=== PATIENT | male | born 1975 | race Caucasian/White ===

== ENCOUNTER → 2016-08-07 | Outpatient (CLI) | payer MEDICAID ==
[~2016-08-07] MED LIST: ALPR1TAB2 PO; BUPR1FIL3 SL; DIAZ10TA PO; ONDA4TAB7 PO; OXYC30TA PO
== END | disposition home or self-care (01) ==
LOC: PETCFH 12:32
PROVIDERS: ATTEND Specialist
DX: C43.9 Malignant melanoma of skin, unspecified (principal); R91.1 Solitary pulmonary nodule
CPT/HCPCS: 78816; A9552

== ENCOUNTER 2016-10-18 18:30 | Emergency (ER) | payer MEDICAID ==
[~2016-10-18] VITALS: Ht 177.8 cm; Wt 82.5 kg
[2016-10-18] MEDS ORDERED: HYDROmorphone 1 MG/ML, 1ML ONE (18:57)
[2016-10-18] MEDS ORDERED: HYDROmorphone 1 MG/ML, 1ML IM PRN (19:00)
[2016-10-18] MEDS ORDERED: HYDROmorphone 1 MG/ML, 1ML IM ONE (19:30)
[2016-10-18] MEDS ORDERED: OXYcodone/APAP 5/325MG TABLET ONE (19:47)
[2016-10-18 19:53] VITALS: BP 111/75
[2016-10-18] MEDS ORDERED: OXYcodone/APAP 5/325MG TABLET PO ONE (20:00)
== END 2016-10-18 20:13 | disposition home or self-care (01) ==
LOC: ED 19:44
DX: S83.511A Sprain of anterior cruciate ligament of right knee, initial encounter (principal); S83.521A Sprain of posterior cruciate ligament of right knee, initial encounter; Z85.9 Personal history of malignant neoplasm, unspecified; Z91.041 Radiographic dye allergy status; X50.1XXA Overexertion from prolonged static or awkward postures, initial encounter; Y93.01 Activity, walking, marching and hiking; Y92.89 Other specified places as the place of occurrence of the external cause; Y99.8 Other external cause status
CPT/HCPCS: 29505; 73564; 73590; 73610; 96372; 99284; J1170

== ENCOUNTER → 2016-11-03 | Outpatient (CLI) | payer MEDICAID | END | disposition home or self-care (01) | LOC: CFH 15:37 | PROVIDERS: ATTEND Physician Assistant | DX: M94.261 Chondromalacia, right knee (principal); R60.9 Edema, unspecified ==

== ENCOUNTER → 2016-11-11 | Outpatient (CLI) | payer MEDICAID | END | disposition home or self-care (01) | LOC: PETCFH 09:11 | PROVIDERS: ATTEND Specialist | DX: R91.1 Solitary pulmonary nodule (principal); C43.9 Malignant melanoma of skin, unspecified | CPT/HCPCS: 78816; A9552 ==

== ENCOUNTER 2016-11-26 06:06 | Day surgery (SDC) | payer MEDICAID ==
[~2016-11-26] VITALS: Ht 177.8 cm; Wt 83.7 kg
[2016-11-26] MEDS ORDERED: SODIUM CHLORIDE 0.9% 1,000 ML IV SCH ×2 (07:03→07:30)
[2016-11-26 07:04] VITALS: BP 128/83
[2016-11-26] MEDS ORDERED: LIDOCAINE 1%, 20ML ONE (07:48)
[2016-11-26] MEDS ORDERED: FENTANYL PF 100 MCG/2ML ONE (07:58)
[2016-11-26] MEDS ORDERED: MIDAZOLAM 1 MG/ML, 5ML ONE (07:58)
[2016-11-26] MEDS ORDERED: NALOXONE 1 MG/ML, 2ML ONE (07:58)
[2016-11-26] MEDS ORDERED: FLUMAZENIL 0.1 MG/1 ML, 5ML ONE (07:58)
== END 2016-11-26 09:20 ==
LOC: OUT 06:06
PROVIDERS: ATTEND Specialist
DX: Z45.2 Encounter for adjustment and management of vascular access device (principal); Z85.820 Personal history of malignant melanoma of skin; F17.210 Nicotine dependence, cigarettes, uncomplicated
CPT/HCPCS: 36590; 77001; 99156; 99157; J2250; J3010; J3490; J7030; J2310

== ENCOUNTER → 2017-02-15 | Outpatient (CLI) | payer MEDICAID | END | disposition home or self-care (01) | LOC: PETCFH 09:32 | PROVIDERS: ATTEND Specialist | DX: C43.9 Malignant melanoma of skin, unspecified (principal) | CPT/HCPCS: 78816; A9552 ==

== ENCOUNTER → 2017-02-24 | Outpatient (CLI) | payer MEDICAID | END | disposition home or self-care (01) | LOC: PETCFH 10:59 | PROVIDERS: ATTEND Specialist | DX: R91.1 Solitary pulmonary nodule (principal) | CPT/HCPCS: 78816; A9552 ==

== ENCOUNTER → 2017-07-01 | Outpatient (CLI) | payer MEDICAID | END | disposition home or self-care (01) | LOC: PETCFH 06:39 | PROVIDERS: ATTEND Specialist | DX: R91.1 Solitary pulmonary nodule (principal); Q28.3 Other malformations of cerebral vessels; C43.9 Malignant melanoma of skin, unspecified | CPT/HCPCS: 70553; 78816; A9552; A9585 ==

== ENCOUNTER → 2017-10-14 | Outpatient (CLI) | payer MEDICAID | END | disposition home or self-care (01) | LOC: PETCFH 09:51 | PROVIDERS: ATTEND Specialist | DX: R91.1 Solitary pulmonary nodule (principal); C43.9 Malignant melanoma of skin, unspecified | CPT/HCPCS: 78816; A9552 ==

== ENCOUNTER 2017-12-10 11:42 | Emergency (ER) | payer MEDICAID ==
[~2017-12-10] VITALS: Ht 177.8 cm; Wt 81.0 kg
[2017-12-10 11:44] VITALS: BP 155/95
[2017-12-10] MEDS ORDERED: OXYcodone/APAP 10/325MG TABLET PO ONE (12:00)
[2017-12-10] MEDS ORDERED: OXYcodone/APAP 10/325MG TABLET ONE (12:02)
== END 2017-12-10 13:07 | disposition home or self-care (01) ==
LOC: ED 12:41
DX: S93.621A Sprain of tarsometatarsal ligament of right foot, initial encounter (principal); S94.91XA Injury of unspecified nerve at ankle and foot level, right leg, initial encounter; F17.200 Nicotine dependence, unspecified, uncomplicated; X50.1XXA Overexertion from prolonged static or awkward postures, initial encounter; Y93.89 Activity, other specified; Y92.009 Unspecified place in unspecified non-institutional (private) residence as the place of occurrence of the external cause; Y99.8 Other external cause status
CPT/HCPCS: 99284

== ENCOUNTER 2018-02-22 19:25 | Emergency (ER) | payer MEDICAID ==
[~2018-02-22] VITALS: Ht 177.8 cm; Wt 75.0 kg
[2018-02-22] MEDS ORDERED: SODIUM CHLORIDE FLUSH 10ML SYR IVF ONE (20:00)
[2018-02-22] MEDS ORDERED: PROCHLORPERAZINE 5 MG/ML, 2ML IVPush ONE (20:00)
[2018-02-22] MEDS ORDERED: KETOROLAC 30 MG/1 ML IVPush ONE (20:00)
[2018-02-22] MEDS ORDERED: LORazepam 2 MG/ML, 1ML IVPush ONE (20:00)
[2018-02-22] MEDS ORDERED: KETOROLAC 30 MG/1 ML ONE (20:01)
[2018-02-22] MEDS ORDERED: PROCHLORPERAZINE 5 MG/ML, 2ML ONE (20:01)
[2018-02-22] MEDS ORDERED: LORazepam 2 MG/ML, 1ML ONE (20:03)
[2018-02-22 20:09] LABS: BASOPHILS # (AUTO) 0.09 x10^3/uL (0-0.1); BASOPHILS % (AUTO) 1 % (0-1); EOSINOPHILS # (AUTO) 0.28 x10^3/uL (0-0.4); EOSINOPHILS % (AUTO) 3 % (1-7); LYMPHOCYTES # (AUTO) 2.03 x10^3/uL (1-3.4); LYMPHOCYTES % (AUTO) 19 % (22-44); MD NO; MEAN CORPUSCULAR HEMOGLOBIN 32.6 pg (27.5-34.5); MEAN CORPUSCULAR VOLUME 95.8 fL (81-97); MEAN PLATELET VOLUME 7.3 fL (7.4-10.4); MONOCYTES # (AUTO) 0.91 x10^3/uL (0.2-0.8); MONOCYTES % (AUTO) 9 % (2-9); NEUTROPHILS # (AUTO) 7.47 x10^3/uL (1.8-6.8); NEUTROPHILS % (AUTO) 69 % (42-75); PLATELET COUNT 344 x10^3/uL (130-400); RED BLOOD COUNT 4.32 x10^6/uL (4.38-5.82); RED CELL DISTRIBUTION WIDTH 12.6 % (9.4-14.8)
[2018-02-22 20:21] LABS: ALANINE AMINOTRANSFERASE 17 U/L (12-78); ALBUMIN 3.9 g/dL (3.4-5.0); ANION GAP 10 mmol/L (5-15); CHLORIDE 103 mmol/L (98-107); CREATININE 1.18 mg/dL (0.7-1.3)
[2018-02-22 20:23] LABS: ALKALINE PHOSPHATASE 68 U/L (45-117); BILIRUBIN,TOTAL 0.2 mg/dL (0.2-1.0)
[2018-02-22 21:21] VITALS: BP 119/71
== END 2018-02-22 21:23 | disposition home or self-care (01) ==
LOC: ED 20:55
DX: G40.309 Generalized idiopathic epilepsy and epileptic syndromes, not intractable, without status epilepticus (principal); R51 Headache
CPT/HCPCS: 36415; 70450; 80053; 85025; 93005; 96374; 96375; 99284; J0780; J1885; J2060

== ENCOUNTER 2018-08-19 12:43 | Outpatient (CLI) | payer MEDICAID | END 2018-08-19 23:59 | disposition home or self-care (01) | LOC: CARD 12:43 | PROVIDERS: ATTEND Nurse Practitioner Family | DX: R56.9 Unspecified convulsions (principal) | CPT/HCPCS: 95819 ==

== ENCOUNTER 2018-08-25 16:07 | Day surgery (SDC) | payer MEDICAID ==
[~2018-08-25] VITALS: Ht 182.9 cm; Wt 86.8 kg
[~2018-08-25 16:07] MED LIST changes: +BUPIVACAINE/PF 0.5% ONE; +CEFAZOLIN 1,000 MG ONE; +DEXAMETHASONE 4 MG/ML, 1ML ONE; +FENTANYL PF 250 MCG/5ML ONE; +MIDAZOLAM 1 MG/ML, 2ML ONE; +PROPOFOL 10 MG/ML, 20ML ONE
[2018-08-25 16:39] VITALS: BP 127/79
[2018-08-25] MEDS ORDERED: HALOPERIDOL 5 MG/ML IV PRN (17:30)
[2018-08-25] MEDS ORDERED: PROMETHAZINE 25 MG/ML, 1ML IV PRN (17:30)
[2018-08-25] MEDS ORDERED: OXYcodone 5 MG/5 ML ORAL.SOL UDC PO PRN ×2 (17:30→20:30)
[2018-08-25] MEDS ORDERED: MEPERIDINE/PF 25MG/0.5ML IVPush PRN (17:30)
[2018-08-25] MEDS ORDERED: hydrALAzine 20 MG/ML, 1ML IV PRN (17:30)
[2018-08-25] MEDS ORDERED: ALBUTEROL SULFATE 2.5 MG/3 ML NPPB PRN (17:30)
[2018-08-25] MEDS ORDERED: ACETAMINOPHEN 325 MG TABLET PO PRN (17:30)
[2018-08-25] MEDS ORDERED: MIDAZOLAM 1 MG/ML, 2ML IV PRN (17:30)
[2018-08-25] MEDS ORDERED: ACETAMINOPHEN 650 MG/20.3 ML UDC ONE (18:16)
[2018-08-25] MEDS ORDERED: FENTANYL PF 100 MCG/2ML ONE ×2 (18:16→19:00)
[2018-08-25] MEDS ORDERED: OXYcodone 5 MG/5 ML ORAL.SOL UDC ONE (18:16)
[2018-08-25] MEDS: FENTANYL PF 100 MCG/2ML IV PRN ×4 (18:19→19:26)
[2018-08-25] MEDS ORDERED: HYDROmorphone 2 MG/ML, 1ML ONE (18:26)
[2018-08-25] MEDS: HYDROmorphone 2 MG/ML, 1ML IVPush PRN ×4 (18:29→18:58)
[2018-08-25 20:00] VITALS: BP 119/85
[2018-08-25] MEDS ORDERED: ONDANSETRON 2MG/ML, 2ML IV PRN (20:30)
[2018-08-25] MEDS ORDERED: PROMETHAZINE 25 MG/ML, 1ML IM PRN (20:30)
[2018-08-25] MEDS ORDERED: morphine SULFATE 10 MG/ML, 1ML IV PRN (20:30)
[2018-08-25] MEDS ORDERED: OXYcodone/APAP 5/325MG TABLET PO PRN (20:30)
[2018-08-25] MEDS ORDERED: KETOROLAC 30 MG/1 ML IV SCH (20:30)
== END 2018-08-25 20:55 | disposition home or self-care (01) ==
LOC: OR 16:07 → 2N 19:42 → 4NOR 19:45 → OR 20:55
PROVIDERS: ATTEND Orthopaedic Surgery
DX: S62.627A Displaced fracture of middle phalanx of left little finger, initial encounter for closed fracture (principal); Z72.89 Other problems related to lifestyle; Z79.891 Long term (current) use of opiate analgesic; Z79.899 Other long term (current) drug therapy; Z87.891 Personal history of nicotine dependence; Z85.820 Personal history of malignant melanoma of skin; Z98.890 Other specified postprocedural states; X58.XXXA Exposure to other specified factors, initial encounter; Y93.61 Activity, american tackle football; Y92.89 Other specified places as the place of occurrence of the external cause; Y99.8 Other external cause status
CPT/HCPCS: 20690; 26746; 73140; 76000; C1713; J0690; J1100; J1170; J1885; J2250; J2704; J3010; G0378

== ENCOUNTER 2018-10-14 16:36 | Emergency (ER) | payer MEDICAID ==
[~2018-10-14] VITALS: Ht 180.3 cm; Wt 88.8 kg
[2018-10-14 16:55] VITALS: BP 108/74
== END 2018-10-14 18:31 | disposition home or self-care (01) ==
LOC: ED 17:33
DX: S42.022A Displaced fracture of shaft of left clavicle, initial encounter for closed fracture (principal); S20.212A Contusion of left front wall of thorax, initial encounter; V47.5XXA Car driver injured in collision with fixed or stationary object in traffic accident, initial encounter; Y93.89 Activity, other specified; Y92.89 Other specified places as the place of occurrence of the external cause; Y99.8 Other external cause status
CPT/HCPCS: 29105; 99283

== ENCOUNTER 2018-10-15 15:37 | Emergency (ER) | payer MEDICAID ==
[~2018-10-15] VITALS: Ht 180.3 cm; Wt 86.2 kg
[2018-10-15 15:44] VITALS: BP 110/69
== END 2018-10-15 17:04 | disposition home or self-care (01) ==
LOC: ED 16:17
DX: S42.022A Displaced fracture of shaft of left clavicle, initial encounter for closed fracture (principal); R07.89 Other chest pain; V29.88XA Motorcycle rider (driver) (passenger) injured in other specified transport accidents, initial encounter; Y93.55 Activity, bike riding; Y92.89 Other specified places as the place of occurrence of the external cause; Y99.8 Other external cause status
CPT/HCPCS: 71045; 99283

== ENCOUNTER → 2020-08-15 | Outpatient (CLI) | payer MEDICAID ==
[~2020-08-15] MED LIST changes: -BUPIVACAINE/PF 0.5% ONE; -CEFAZOLIN 1,000 MG ONE; -DEXAMETHASONE 4 MG/ML, 1ML ONE; -FENTANYL PF 250 MCG/5ML ONE; +GADOTERATE 7.5 MMOL/15ML SYR ONE; -MIDAZOLAM 1 MG/ML, 2ML ONE; -OXYC30TA PO; +OXYC30TA3 PO; -PROPOFOL 10 MG/ML, 20ML ONE
== END | disposition home or self-care (01) ==
LOC: RAD 13:17
PROVIDERS: ATTEND Nurse Practitioner
DX: S06.0X9S Concussion with loss of consciousness of unspecified duration, sequela (principal); X58.XXXS Exposure to other specified factors, sequela; Z85.820 Personal history of malignant melanoma of skin; Z87.898 Personal history of other specified conditions
CPT/HCPCS: 70450; 70553; A9575